=== PATIENT | male | born 1940 | race Caucasian/White ===

== ENCOUNTER 2020-10-19 13:13 | Inpatient (IN) | payer OTHER, MEDICARE ==
[~2020-10-19] VITALS: Ht 167.6 cm; Wt 56.5 kg
[2020-10-19] MEDS: NS 1,000 ML IV SCH (00:55)
[2020-10-19 14:24] LABS: BASO % 0.2 % (0.0-1.0); EOS # 0.1 10^3/uL (0.0-0.5); HEMATOCRIT 36.6 % (42.0-52.0); HEMOGLOBIN 12.2 g/dl (13.5-17.5); LYMPH # 0.6 10^3/uL (1.5-5.0); LYMPH % 11.6 % (24.0-44.0); MEAN CORPUSCULAR HEMOGLOBIN 30.2 pg (27.0-33.0); MEAN CORPUSCULAR HGB CONC 33.3 g/dl (32.0-36.5); MEAN CORPUSCULAR VOLUME 90.6 fl (80.0-96.0); MONO # 0.5 10^3/uL (0.0-0.8); NEUTROPHILS # 3.6 10^3/uL (1.5-8.5); PLATELET COUNT, AUTOMATED 149 10^3/uL (150-450); RED BLOOD COUNT 4.04 10^6/uL (4.30-6.10); WHITE BLOOD COUNT 4.8 10^3/uL (4.0-10.0)
[2020-10-19 14:34] LABS: INR 1.16; PROTHROMBIN TIME 15.1 SECONDS (12.5-14.3)
[2020-10-19 14:35] LABS: FIBRINOGEN 624 MG/DL (221-452); PARTIAL THROMBOPLASTIN TIME 31.7 SECONDS (24.2-38.5)
[2020-10-19 14:42] LABS: ALBUMIN 3.3 GM/DL (3.2-5.2); BILIRUBIN,TOTAL 0.8 MG/DL (0.2-1.0); C REACTIVE PROTEIN QUANTITATIV 8.23 MG/DL (0.00-0.30); CK-MB VALUE MASS 2.6 NG/ML (<3.6); CREATININE FOR GFR 1.36 MG/DL (0.70-1.30); GLOMERULAR FILTRATION RATE 53.8 (>42); MAGNESIUM LEVEL 2.2 MG/DL (1.8-2.4); MB/CK RELATIVE INDEX 3.06 (< OR =4); POTASSIUM SERUM 3.9 MEQ/L (3.5-5.1); TOTAL PROTEIN 7.2 GM/DL (6.4-8.2); TROPONIN I 0.02 NG/ML (< 0.10)
--- NOTE | 2020-10-19 14:43 | REP ---
INDICATION: Coronavirus workup COMPARISON: None. TECHNIQUE: Portable AP view of the chest FINDINGS: The mediastinum and cardiac silhouette are stable and within normal limits for portable technique. The lung choi are clear without acute consolidation, effusion, or pneumothorax. Skeletal structures are intact. IMPRESSION: No acute cardiopulmonary process appreciated. <Electronically signed by Gabriele Augustin > 10/19/20 0194
[2020-10-19 15:13] LABS: D-DIMER QUANT > 4000 ng/ml (<500)
[2020-10-19] MEDS ORDERED: NS 1,000 ML IV ONE ×3 (17:30→22:15)
[2020-10-19] MEDS ORDERED: TOPI50TA9 PO (17:48)
[2020-10-19] MEDS ORDERED: LISI-538 PO (17:48)
[2020-10-19] MEDS ORDERED: PROP80TA PO (17:48)
[2020-10-19] MEDS ORDERED: PRAV10TA3 PO (17:48)
[2020-10-19] MEDS ORDERED: MAALOX 30 ML SUSP *UDC PO PRN (23:15)
[2020-10-19] MEDS ORDERED: MOM 30ML SUSPENSION UDC PO PRN (23:15)
[2020-10-19] MEDS ORDERED: ACETAMINOPHEN TAB 650MG DOSE (2X325MG) PO PRN (23:15)
--- NOTE | 2020-10-19 23:32 | HPEPDOC ---
[facility] Medical History & Physical Date of Admission Oct 19, 2020 Date of Service: Oct 20, 2020 Other Provider Thom Mckeon MD Attending Physician: KAYKAY BERKOWITZ MD History and Physical TIME OF SERVICE: 12:05 AM CHIEF COMPLAINT: not urinating HISTORY OF PRESENT ILLNESS: This 80 year old gentleman was diagnosed with COVID 19, 6 days ago. Over the last couple of days, he has not been eating or drinking much been feeling very weak. Over the last 2 days, he hasn't produced much urine and felt concerned, therefore he decided to come to the hospital to request IV fluids. He denies feeling dizzy or falling. He is not sure where he contracted COVID 19. He has visited few dinners and [employer] recently. Both his and his son who live with him also have COVID. Today his shortness of breath became so severe that he now has difficulties speaking. REVIEW OF SYSTEMS: 12 point review of systems negative except as listed in HPI PAST MEDICAL/ SURGICAL HISTORY: Chronic hypertension. Essential tremors Hernia repair SOCIAL HISTORY: He doesn't smoke FAMILY HISTORY: Coronary artery disease ALLERGIES: Please see below. HOME MEDICATIONS: Please see below. PHYSICAL EXAMINATION: VITAL SIGNS: Please see below. GEN: well-nourished / well developed/ listless INTEGUMENT: not flushed/ not jaundice HEENT: Room air/mask is covering lower part of his face CVS: RRR/NMRG/ radial pulse intact LUNGS: Not able to speak full sentences without stopping to take a breath / coughing frequently/ lungs are clear to auscultation bilaterally on room air ABDOMEN: Contour (flat) / soft & not tender with palpation MSK/EXTREMITIES: NCAT NEURO: CN 2-12 are grossly intact / speech is not dysarthric PSYCH: alert and oriented to person place and time/ able to understand and f ollow all commands LABORATORY DATA: See below. IMAGING: Chest x-ray "IMPRESSION: No acute cardiopulmonary process appreciated." MICROBIOLOGY: Please see below. ASSESSMENT: Mr. Delgado a 80-year-old with a history of essential tremors and hypertension who was diagnosed with COVID 19 few days ago and subsequently developed poor appetite and decreased urine output; he came to the hospital requesting IV fluids and will be admitted primarily for management of dehydration. PLAN: 1. Dehydration secondary to poor oral His reduced PO intake is likely due to COVID infection He has tachycardia. His Cr and BUN are slightly elevated but we don't have a recent BMP to compare his current renal panel to Plan: Admit to medical floor/IV fluids / f/u BMP 2. COVID-19 Infection Has shortness of breath, using his accessory muscles, but his O2 sats are still above 94% on room air Blood work supports this diagnosis of Covid includes thrombocytopenia, elevated d-dimer, elevated ferritin, elevated LDH & elevated CRP His pro-calcitonin is within normal limits and the chest x-rays negative for infiltrates Plan: contact precautions / continuous pulse ox will ask the day time team to consider starting remdesivir if he is unable to maintain his O2 sats above 92% on room air / continue to trend CRP (if high indicates bad prognosis), trop, Coags, BMP, fibrinogen, INR, PT, PTT (if pt has DIC indicates bad prognosis), ferritin, LDH, trop (if elevated will order Echo to r/o cardiomyopathy) / VBG t o assess for hypoxia 2. Chronic hypertension Plan: Lisinopril 3. Essential tremors Plan: Inderal DVT PROPHYLAXIS: Lovenox DISPOSITION: home after more than 2 midnight's stay Vital Signs Vital Signs Date Time Temp Pulse Resp B/P (MAP) Pulse Ox O2 Delivery O2 Flow Rate FiO2 10/19/20 22:52 124 94 Room Air 10/19/20 22:46 149/99 (116) 10/19/20 21:00 97.6 10/19/20 17:45 20 Laboratory Data Labs 24H Laboratory Tests 2 10/19/20 13:25: Immature Granulocyte % (Auto) 1.2, Neutrophils (%) (Auto) 75.0H, Lymphocytes (%) (Auto) 11.6L, Monocytes (%) (Auto) 11.0H, Eosinophils (%) (Auto) 1.0, Basophils (%) (Auto) 0.2, Neutrophils # (Auto) 3.6, Lymphocytes # (Auto) 0.6L, Monocytes # (Auto) 0.5, Eosinophils # (Auto) 0.1, Basophils # (Auto) 0.0, Nucleated Red Blood Cells % (auto) 0.0, Prothrombin Time 15.1H, Prothromb Time International Ratio 1.16, Activated Partial Thromboplast Time 31.7, Fibrinogen 624H, D-Dimer, Quantitative > 4000H, Anion Gap 9, Glomerular Filtration Rate 53.8, Lactic Acid Level 1.4, Calcium Level 9.0, Magnesium Level 2.2, Ferritin 910H, Total Bilirubin 0.8, Aspartate Amino Transf (AST/SGOT) 36, Alanine Aminotransferase (ALT/SGPT) 30, Alkaline Phosphatase 71, Lactate Dehydrogenase 250H, Total Creatine Kinase 85, Creatine Kinase MB 2.6, Creatine Kinase MB Relative Index 3.06, Troponin I 0.02, C-Reactive Protein, Quantitative 8.23H, Total Protein 7.2, Albumin 3.3, Albumin/Globulin Ratio 0.8, Procalcitonin 0.06 10/19/20 13:54: POC pH (Misc Panel) 7.435, POC Base Excess (Misc Panel) -6.0L, POC Saturated Percent O2 (Misc) 96, POC pO2 (Misc Panel) 78.0L, POC pCO2 (Misc Panel) 26.7L, POC HCO3 (Misc Panel) 17.9L, POC Total CO2 (Misc Panel) 19.0L CBC/BMP Laboratory Tests 10/19/20 13:25 Microbiology Microbiology 10/19/20 Blood Culture, Received Pending 10/19/20 Blood Culture, Received Pending Home Medications Scheduled Aspirin (Aspirin) 325 Mg Tablet, 325 MG PO DAILY Lisinopril (Lisinopril) 40 Mg Tablet, 20 MG PO DAILY Multivitamins (Thera M Plus Tablet) 1 Each Tablet, 1 TAB PO BIDWM Pravastatin Sodium (Pravastatin Sodium) 20 Mg Tablet, 20 MG PO DAILY Propranolol HCl (Propranolol HCl ER) 160 Mg Cap.sa.24h, 160 MG PO DAILY Topiramate (Topiramate) 100 Mg Tablet, 50 MG PO BID Scheduled PRN Metoclopramide HCl (Metoclopramide HCl) 5 Mg Tablet, 5 MG PO WM PRN for NAUSEA Allergies Coded Allergies: No Known Allergies (Unverified , 10/19/20) A-FIB/CHADSVASC A-FIB History Current/History of A-Fib/PAF?: No Current PO Anticoag Therapy: No KAYKAY BERKOWITZ MD Oct 19, 2020 23:32
[2020-10-19] MEDS ORDERED: ONDANSETRON 4 MG ORAL DISINTEGRATING TAB PO PRN (23:45)
[2020-10-19] MEDS ORDERED: PILL CUTTER 1 EACH XX PRN (23:45)
[2020-10-19] MEDS ORDERED: TOPI100T9 PO (23:47)
[2020-10-19] MEDS ORDERED: ASPI325T54 PO (23:47)
[2020-10-19] MEDS ORDERED: METO5TAB2 PO (23:47)
[2020-10-19] MEDS ORDERED: PROP160C PO (23:47)
[2020-10-19] MEDS ORDERED: LISI40TA PO (23:47)
[2020-10-19] MEDS ORDERED: VITMTA PO (23:47)
[2020-10-19] MEDS ORDERED: PRAV20TA2 PO (23:47)
[2020-10-20] VITALS (11 sets, daily range): BP systolic 124–140; BP diastolic 72–80; O2SAT 95–98
[2020-10-20 00:41] LABS: EOS # 0.1 10^3/uL (0.0-0.5); EOS % 1.4 % (0.0-3.0); HEMATOCRIT 29.7 % (42.0-52.0); LYMPH # 0.3 10^3/uL (1.5-5.0); LYMPH % 9.2 % (24.0-44.0); MEAN CORPUSCULAR HEMOGLOBIN 29.5 pg (27.0-33.0); MEAN CORPUSCULAR HGB CONC 32.3 g/dl (32.0-36.5); MEAN CORPUSCULAR VOLUME 91.4 fl (80.0-96.0); MONO # 0.4 10^3/uL (0.0-0.8); MONO % 9.8 % (0.0-5.0); NEUTROPHILS # 2.8 10^3/uL (1.5-8.5); NEUTROPHILS % 78.5 % (36.0-66.0); PLATELET COUNT, AUTOMATED 125 10^3/uL (150-450); RED BLOOD COUNT 3.25 10^6/uL (4.30-6.10); WHITE BLOOD COUNT 3.6 10^3/uL (4.0-10.0)
[2020-10-20 00:49] LABS: HEMOGLOBIN 9.6 g/dl (13.5-17.5)
[2020-10-20 00:52] LABS: INR 1.27; PROTHROMBIN TIME 16.2 SECONDS (12.5-14.3)
[2020-10-20 00:53] LABS: FIBRINOGEN 457 MG/DL (221-452); PARTIAL THROMBOPLASTIN TIME 32.8 SECONDS (24.2-38.5)
[2020-10-20 01:12] LABS: C REACTIVE PROTEIN QUANTITATIV 6.59 MG/DL (0.00-0.30); TROPONIN I 0.06 NG/ML (< 0.10)
[2020-10-20 01:41] LABS: D-DIMER QUANT > 4000 ng/ml (<500)
--- NOTE | 2020-10-20 07:32 | ECGEPIP ---
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
[2020-10-20] MEDS: PRAVASTATIN 20 MG TAB PO SCH (08:23)
[2020-10-20] MEDS: TOPIRAMATE (TopAMAX) 25 MG TAB PO SCH ×2 (08:24→20:52)
[2020-10-20] MEDS: PROPRANOLOL 80 MG LA CAP PO SCH (08:25)
[2020-10-20] MEDS: NS 1,000 ML IV SCH (08:26)
[2020-10-20 08:36] LABS: VENOUS HCO3 17.1 MEQ/L (23.0-27.0); VENOUS O2 SATURATION 71.9 % (60.0-80.0); VENOUS PARTIAL PRESSURE CO2 33.7 mmHg (38.0-50.0); VENOUS PARTIAL PRESSURE O2 39.3 mmHg (30.0-50.0); VENOUS PH 7.324 UNITS (7.330-7.430); VENOUS STANDARD HCO3 17.6 MEQ/L; VENOUS TOTAL CO2 18.2 MEQ/L (24.0-28.0)
[2020-10-20] MEDS ORDERED: ENOXAPARIN 40MG/0.4ML SYRINGE (J1650 PER 10MG) SC SCH (09:00)
[2020-10-20] MEDS ORDERED: lisinopriL 20 MG TAB PO SCH (09:00)
[2020-10-20] MEDS ORDERED: ASPIRIN 325 MG TAB PO SCH (09:00)
[2020-10-20 09:28] LABS: INR 1.21; PROTHROMBIN TIME 15.6 SECONDS (12.5-14.3)
[2020-10-20 09:29] LABS: FIBRINOGEN 516 MG/DL (221-452); PARTIAL THROMBOPLASTIN TIME 31.6 SECONDS (24.2-38.5)
[2020-10-20 09:38] LABS: ALBUMIN 2.5 GM/DL (3.2-5.2); BILIRUBIN,TOTAL 0.7 MG/DL (0.2-1.0); C REACTIVE PROTEIN QUANTITATIV 8.51 MG/DL (0.00-0.30); CALCIUM LEVEL 7.6 MG/DL (8.8-10.2); CREATININE FOR GFR 1.78 MG/DL (0.70-1.30); GLOMERULAR FILTRATION RATE 39.4 (>42); MAGNESIUM LEVEL 1.9 MG/DL (1.8-2.4); TOTAL PROTEIN 5.6 GM/DL (6.4-8.2); TROPONIN I 0.06 NG/ML (< 0.10)
[2020-10-20 10:05] LABS: D-DIMER QUANT > 4000 ng/ml (<500)
[2020-10-20 10:14] LABS: BASO % 0.2 % (0.0-1.0); EOS # 0.1 10^3/uL (0.0-0.5); EOS % 1.2 % (0.0-3.0); HEMATOCRIT 30.4 % (42.0-52.0); HEMOGLOBIN 9.7 g/dl (13.5-17.5); LYMPH # 0.4 10^3/uL (1.5-5.0); LYMPH % 10.2 % (24.0-44.0); MEAN CORPUSCULAR HEMOGLOBIN 29.8 pg (27.0-33.0); MEAN CORPUSCULAR HGB CONC 31.9 g/dl (32.0-36.5); MEAN CORPUSCULAR VOLUME 93.5 fl (80.0-96.0); MONO # 0.4 10^3/uL (0.0-0.8); MONO % 10.9 % (0.0-5.0); NEUTROPHILS # 3.1 10^3/uL (1.5-8.5); NEUTROPHILS % 76.5 % (36.0-66.0); PLATELET COUNT, AUTOMATED 132 10^3/uL (150-450); RED BLOOD COUNT 3.25 10^6/uL (4.30-6.10)
--- NOTE | 2020-10-20 13:14 | IPNPDOC ---
Date Seen The patient was seen on 10/20/20. Progress Note SUBJECTIVE: patient continues to saturate 97% on RA. No acute events overnight. Becomes significantly tachypneic on getting up and sitting on commode. Patient reports no cough, no subjective fevers or chills, no chest pain, no n/v/d. 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 he had some suspicious skin lesions removed approx 5 years ago but otherwise has not prior hx of malignancy. OBJECTIVE PHYSICAL EXAMINATION: VITAL SIGNS: please see below General: NAD, comfortable HEENT: PERRLA, EOMI, sclerae clear Neck: supple, normal ROM, no JVD Respiratory: speaking full sentences, not acutely SOB. no cough. lungs CTAB. CVS: RRR, normal S1, S2, no murmurs Abdo: soft, no masses, no hepatosplenomegaly, BS+, no rebound tenderness Extremities: 1+ edema bilaterally. no cyanosis. pulses 2+ MSK: no joint deformities, normal ROM Neuro: no focal neuro deficits, moving all 4 extremities, CN2-12 intact. Strength 5/5 in all 4 extremities. No nystagmus. Psych: calm, cooperative, AAO x 3 LABORATORY DATA, IMAGING STUDIES, MICROBIOLOGY: Please see below. DVT prophylaxis ordered?: ASSESSMENT AND PLAN: Mr. Delgado a 80-year-old with a history of essential tremors and hypertension who was diagnosed with COVID 19 few days ago and subsequently developed poor appetite and decreased urine output; he came to the hospital requesting IV fluids and will be admitted primarily for management of dehydration. PROBLEMS: 1. Dehydration 2/2 poor PO intake: likely 2/2 covid. Increase IVF 125 cc/hr. 2. FILIPPO: Cr trending up, 1.7. Increase NS rate. Trend bmp. 3. COVID-19 infection: SOB on exertion. Not hypoxic at rest. Inflammatory simon ers going up. CRP trending up. CXR negative for infiltrates on 10/19/20. Procal neg. No DIC at this time, fibrinogen elevated. Discussed with Dr. El. Will start dexamethasone 6 mg PO daily. Will increase lovenox to 0.5 mg/kg q12h. Check venous duplex bilateral LEs. Trop 0.06. Stable. 4. HTN: on lisinopril at home, will hold given FILIPPO 5. essential tremors: inderal DVT ppx: 0.5 mg/kg q12h lovenox. VS, I&O, 24H, Ramosbone Vital Signs/I&O Vital Signs Date Time Temp Pulse Resp B/P (MAP) Pulse Ox O2 Delivery O2 Flow Rate FiO2 10/20/20 09:02 98.4 90 18 140/79 (99) 97 Room Air I&O- Last 24 Hours up to 6 AM 10/20/20 06:00 Intake Total 2300 ml Balance 2300 ml Laboratory Data 24H LABS Laboratory Tests 2 10/19/20 13:25: Immature Granulocyte % (Auto) 1.2, Neutrophils (%) (Auto) 75.0H, Lymphocytes (%) (Auto) 11.6L, Monocytes (%) (Auto) 11.0H, Eosinophils (%) (Auto) 1.0, Basophils (%) (Auto) 0.2, Neutrophils # (Auto) 3.6, Lymphocytes # (Auto) 0.6L, Monocytes # (Auto) 0.5, Eosinophils # (Auto) 0.1, Basophils # (Auto) 0.0, Nucleated Red Blood Cells % (auto) 0.0, Prothrombin Time 15.1H, Prothromb Time International Ratio 1.16, Activated Partial Thromboplast Time 31.7, Fibrinogen 624H, D-Dimer, Quantitative > 4000H, Anion Gap 9, Glomerular Filtration Rate 53.8, Lactic Acid Level 1.4, Calcium Level 9.0, Magnesium Level 2.2, Ferritin 910H, Total Bilirubin 0.8, Aspartate Amino Transf (AST/SGOT) 36, Alanine Aminotransferase (ALT/SGPT) 30, Alkaline Phosphatase 71, Lactate Dehydrogenase 250H, Total Creatine Kinase 85, Creatine Kinase MB 2.6, Creatine Kinase MB Relative Index 3.06, Troponin I 0.02, C-Reactive Protein, Quantitative 8.23H, Total Protein 7.2, Albumin 3.3, Albumin/Globulin Ratio 0.8, Procalcitonin 0.06 10/19/20 13:54: POC pH (Misc Panel) 7.435, POC Base Excess (Misc Panel) -6.0L, POC Saturated Percent O2 (Misc) 96, POC pO2 (Misc Panel) 78.0L, POC pCO2 (Misc Panel) 26.7L, POC HCO3 (Misc Panel) 17.9L, POC Total CO2 (Misc Panel) 19.0L 10/20/20 00:28: Immature Granulocyte % (Auto) 1.1, Neutrophils (%) (Auto) 78.5H, Lymphocytes (%) (Auto) 9.2L, Monocytes (%) (Auto) 9.8H, Eosinophils (%) (Auto) 1.4, Basophils (%) (Auto) 0.0, Neutrophils # (Auto) 2.8, Lymphocytes # (Auto) 0.3L, Monocytes # (Auto) 0.4, Eosinophils # (Auto) 0.1, Basophils # (Auto) 0.0, Nucleated Red Bloo d Cells % (auto) 0.0, Prothrombin Time 16.2H, Prothromb Time International Ratio 1.27, Activated Partial Thromboplast Time 32.8, Fibrinogen 457H, D-Dimer, Quantitative > 4000H, Ferritin 715H, Lactate Dehydrogenase 216, Troponin I 0.06#, C-Reactive Protein, Quantitative 6.59H, Procalcitonin 0.05, QL-Crm-Q-Type Natriuretic Peptide 329, Triglycerides Level 88 10/20/20 08:20: Prothrombin Time 15.6H, Prothromb Time International Ratio 1.21, Activated Partial Thromboplast Time 31.6, Fibrinogen 516H, D-Dimer, Quantitative > 4000H, Anion Gap 8, Glomerular Filtration Rate 39.4L, Calcium Level 7.6#L, Magnesium Level 1.9, Ferritin 788H, Total Bilirubin 0.7, Aspartate Amino Transf (AST/SGOT) 38H, Alanine Aminotransferase (ALT/SGPT) 33, Alkaline Phosphatase 56, Lactate Dehydrogenase 259H, Troponin I 0.06, C-Reactive Protein, Quantitative 8.51H, Total Protein 5.6#L, Albumin 2.5#L, Albumin/Globulin Ratio 0.8, Procalcitonin 0.08, CX-Qjz-C-Type Natriuretic Peptide 617H, Triglycerides Level 93, Blood Gas Bicarbonate Standard 17.6, Venous Blood pH 7.324L, Venous Blood Partial Pressure CO2 33.7L, Venous Blood Partial Pressure O2 39.3, Venous Blood Total Carbon Dioxide 18.2L, Venous Blood HCO3 17.1L, Venous Blood Oxygen Saturation 71.9, Venous Blood Base Excess -8.0L 10/20/20 09:57: Immature Granulocyte % (Auto) 1.0, Neutrophils (%) (Auto) 76.5H, Lymphocytes (%) (Auto) 10.2L, Monocytes (%) (Auto) 10.9H, Eosinophils (%) (Auto) 1.2, Basophils (%) (Auto) 0.2, Neutrophils # (Auto) 3.1, Lymphocytes # (Auto) 0.4L, Monocytes # (Auto) 0.4, Eosinophils # (Auto) 0.1, Basophils # (Auto) 0.0, Nucleated Red Blood Cells % (auto) 0.0, Troponin I 0.06 CBC/BMP Laboratory Tests 10/19/20 13:25 10/20/20 00:28 10/20/20 08:20 10/20/20 09:57 Microbiology Microbiology 10/19/20 Blood Culture, Received Pending 10/19/20 Blood Culture, Received Pending BEVERLY MICHAEL MD Oct 20, 2020 13:14
--- NOTE | 2020-10-20 16:13 | REP ---
INDICATION: hypercoag, SOB on exertion. COVID+ COMPARISON: None. TECHNIQUE: Welch scale and color Doppler evaluation of the bilateral lower extremities using linear high frequency transducer. FINDINGS: Ultrasound examination of the right and left lower extremity deep venous structures from the common femoral vein to the popliteal vein demonstrates normal compressibility flow and wave patterns in response to respiration and augmentation. There is no evidence for deep venous thrombosis. IMPRESSION: No evidence for deep venous thrombosis. <Electronically signed by Gabriele Augustin > 10/20/20 1272
[2020-10-20] MEDS: ENOXAPARIN 30MG/0.3ML SYRINGE (J1650 PER 10MG) SC SCH (20:53)
[2020-10-21] VITALS (11 sets, daily range): BP systolic 133–137; BP diastolic 64; O2SAT 95–99
[2020-10-21] MEDS: NS 1,000 ML IV SCH ×4 (01:09→17:03)
[2020-10-21 07:41] LABS: BASO % 0.3 % (0.0-1.0); HEMATOCRIT 29.5 % (42.0-52.0); HEMOGLOBIN 9.3 g/dl (13.5-17.5); LYMPH # 0.4 10^3/uL (1.5-5.0); LYMPH % 11.9 % (24.0-44.0); MEAN CORPUSCULAR HEMOGLOBIN 30.1 pg (27.0-33.0); MEAN CORPUSCULAR HGB CONC 31.5 g/dl (32.0-36.5); MEAN CORPUSCULAR VOLUME 95.5 fl (80.0-96.0); MONO # 0.3 10^3/uL (0.0-0.8); NEUTROPHILS # 2.4 10^3/uL (1.5-8.5); NEUTROPHILS % 76.5 % (36.0-66.0); PLATELET COUNT, AUTOMATED 136 10^3/uL (150-450); RED BLOOD COUNT 3.09 10^6/uL (4.30-6.10); WHITE BLOOD COUNT 3.1 10^3/uL (4.0-10.0)
[2020-10-21 07:59] LABS: ALBUMIN 2.1 GM/DL (3.2-5.2); BILIRUBIN,TOTAL 0.5 MG/DL (0.2-1.0); CALCIUM LEVEL 7.8 MG/DL (8.8-10.2); CREATININE FOR GFR 1.86 MG/DL (0.70-1.30); GLOMERULAR FILTRATION RATE 37.5 (>42); POTASSIUM SERUM 4.2 MEQ/L (3.5-5.1); TOTAL PROTEIN 5.1 GM/DL (6.4-8.2)
[2020-10-21] MEDS ORDERED: ASPIRIN 325 MG TAB PO SCH (09:00)
[2020-10-21] MEDS: ENOXAPARIN 30MG/0.3ML SYRINGE (J1650 PER 10MG) SC SCH ×2 (09:36→21:03)
[2020-10-21] MEDS: TOPIRAMATE (TopAMAX) 25 MG TAB PO SCH ×2 (09:36→21:03)
[2020-10-21] MEDS: PROPRANOLOL 80 MG LA CAP PO SCH (09:37)
[2020-10-21] MEDS: PRAVASTATIN 20 MG TAB PO SCH (09:37)
--- NOTE | 2020-10-21 11:08 | IPNPDOC ---
Date Seen The patient was seen on 10/21/20. Progress Note SUBJECTIVE: patient continues to saturate 97% on RA. Per RN, able to ambulate to commode without desaturation to below 94% on RA. Denies fevers, chills, n/v/d, no cough, no palpitations no chest pain. OBJECTIVE PHYSICAL EXAMINATION: VITAL SIGNS: please see below General: NAD, comfortable HEENT: PERRLA, EOMI, sclerae clear Neck: supple, normal ROM, no JVD Respiratory: speaking full sentences, not acutely SOB. no cough. lungs CTAB. CVS: RRR, normal S1, S2, no murmurs Abdo: soft, no masses, no hepatosplenomegaly, BS+, no rebound tenderness Extremities: 1+ edema bilaterally. no cyanosis. pulses 2+ MSK: no joint deformities, normal ROM Neuro: no focal neuro deficits, moving all 4 extremities, CN2-12 intact. Strength 5/5 in all 4 extremities. No nystagmus. Psych: calm, cooperative, AAO x 3 LABORATORY DATA, IMAGING STUDIES, MICROBIOLOGY: Please see below. DVT prophylaxis ordered?: ASSESSMENT AND PLAN: Mr. Delgado a 80-year-old with a history of essential tremors and hypertension who was diagnosed with COVID 19 few days ago and subsequently developed poor appetite and decreased urine output; he came to the hospital requesting IV fluids and will be admitted primarily for management of dehydration. PROBLEMS: 1. Dehydration 2/2 poor PO intake: c/w IVF 2. FILIPPO: CR trending up, 1.86. Discussed with Dr. Harris, continue IVF hydration. Repeat BMP in am. 3. COVID-19 infection: SOB on exertion. Not hypoxic at rest CXR negative for infiltrates on 10/19/20. Procal neg. No DIC at this time, fibrinogen elevated. Discussed with Dr. El. dexamethasone 6 mg PO daily. lovenox to 0.5 mg/kg q12h. venous duplex bilateral LEs - negative for DVT. 4. HTN: on lisinopril at home, will hold given FILIPPO 5. essential tremors: inderal DVT ppx: 0.5 mg/kg q12h lovenox. VS, I&O, 24H, Fishbone Vital Signs/I&O Vital Signs Date Time Temp Pulse Resp B/P (MAP) Pulse Ox O2 Delivery O2 Flow Rate FiO2 11/27/20 09:37 76 133/64 10/21/20 07:00 98 Room Air 10/21/20 05:23 96.0 16 I&O- Last 24 Hours up to 6 AM 10/21/20 06:00 Intake Total 2310 ml Output Total 0 ml Balance 2310 ml Laboratory Data 24H LABS Laboratory Tests 2 10/20/20 22:58: Troponin I 0.04# 10/21/20 07:21: Immature Granulocyte % (Auto) 1.3, Neutrophils (%) (Auto) 76.5H, Lymphocytes (%) (Auto) 11.9L, Monocytes (%) (Auto) 10.0H, Eosinophils (%) (Auto) 0.0, Basophils (%) (Auto) 0.3, Neutrophils # (Auto) 2.4, Lymphocytes # (Auto) 0.4L, Monocytes # (Auto) 0.3, Eosinophils # (Auto) 0.0, Basophils # (Auto) 0.0, Nucleated Red Blood Cells % (auto) 0.0, Anion Gap 10, Glomerular Filtration Rate 37.5L, Calcium Level 7.8L, Magnesium Level 2.0, Total Bilirubin 0.5, Aspartate Amino Transf (AST/SGOT) 24, Alanine Aminotransferase (ALT/SGPT) 23, Alkaline Phosphatase 53, Total Protein 5.1L, Albumin 2.1L, Albumin/Globulin Ratio 0.7 CBC/BMP Laboratory Tests 10/21/20 07:21 Microbiology Microbiology 10/19/20 Blood Culture - Preliminary, Resulted No growth after 24 hours . All specim... 10/19/20 Blood Culture - Preliminary, Resulted No growth after 24 hours . All specim... BEVERLY MICHAEL MD Oct 21, 2020 11:08
[2020-10-21 11:37] LABS: PLATELET COUNT, AUTOMATED 159 10^3/uL (150-450)
[2020-10-21 11:53] LABS: FIBRINOGEN 432 MG/DL (221-452); INR 1.38; PARTIAL THROMBOPLASTIN TIME 35.6 SECONDS (24.2-38.5); PROTHROMBIN TIME 17.3 SECONDS (12.5-14.3)
[2020-10-21 12:06] LABS: C REACTIVE PROTEIN QUANTITATIV 6.44 MG/DL (0.00-0.30)
[2020-10-21 12:17] LABS: D-DIMER QUANT > 4000 ng/ml (<500)
[2020-10-21 12:39] LABS: ERYTHROCYTE SEDIMENTATION RATE 58 mm/hr (0-20)
[2020-10-22] VITALS: O2SAT 98
[2020-10-22] MEDS: NS 1,000 ML IV SCH ×2 (03:33→08:18)
[2020-10-22 06:00] VITALS: O2SAT 95
[2020-10-22 06:21] VITALS: BP 152/72
[2020-10-22 07:24] LABS: BASO % 0.2 % (0.0-1.0); HEMATOCRIT 30.3 % (42.0-52.0); HEMOGLOBIN 9.7 g/dl (13.5-17.5); LYMPH # 0.4 10^3/uL (1.5-5.0); LYMPH % 8.3 % (24.0-44.0); MEAN CORPUSCULAR HEMOGLOBIN 29.9 pg (27.0-33.0); MEAN CORPUSCULAR VOLUME 93.5 fl (80.0-96.0); MONO # 0.5 10^3/uL (0.0-0.8); MONO % 10.7 % (0.0-5.0); NEUTROPHILS % 79.4 % (36.0-66.0); PLATELET COUNT, AUTOMATED 159 10^3/uL (150-450); RED BLOOD COUNT 3.24 10^6/uL (4.30-6.10)
[2020-10-22 07:44] VITALS: BP 151/79
[2020-10-22 07:46] LABS: ALBUMIN 2.2 GM/DL (3.2-5.2); BILIRUBIN,TOTAL 0.6 MG/DL (0.2-1.0); CALCIUM LEVEL 7.7 MG/DL (8.8-10.2); CREATININE FOR GFR 1.42 MG/DL (0.70-1.30); GLOMERULAR FILTRATION RATE 51.2 (>42); MAGNESIUM LEVEL 1.9 MG/DL (1.8-2.4); POTASSIUM SERUM 4.1 MEQ/L (3.5-5.1); TOTAL PROTEIN 5.2 GM/DL (6.4-8.2)
[2020-10-22 08:00] VITALS: O2SAT 96
[2020-10-22] MEDS: ASPIRIN 81 MG ENTERIC TAB PO SCH (08:17)
[2020-10-22] MEDS: PRAVASTATIN 20 MG TAB PO SCH (08:17)
[2020-10-22] MEDS: PROPRANOLOL 80 MG LA CAP PO SCH (08:17)
[2020-10-22] MEDS: TOPIRAMATE (TopAMAX) 25 MG TAB PO SCH ×2 (08:18→20:08)
[2020-10-22] MEDS: ENOXAPARIN 30MG/0.3ML SYRINGE (J1650 PER 10MG) SC SCH ×2 (08:18→20:08)
[2020-10-22] MEDS ORDERED: ASPI81TAEC PO (11:54)
[2020-10-22] MEDS ORDERED: DEXA2TA PO (11:54)
[2020-10-22] MEDS ORDERED: ACET1TAB55 PO (11:54)
--- NOTE | 2020-10-22 14:06 | DS.PDOC ---
Discharge Summary General Date of Admission 10/19/20 Date of Discharge 10/22/20 Discharge Summary PROCEDURES PERFORMED DURING STAY: None ADMITTING DIAGNOSES: 1. Covid-19 Infection 2. Chronic hypertension 3. Essential tremors DISCHARGE DIAGNOSES: 1. Covid-19 Infection 2. Chronic hypertension 3. Essential tremors 4. FILIPPO 5. Dehydration COMPLICATIONS/CHIEF COMPLAINT: Covid-19. HISTORY OF PRESENT ILLNESS: This 80 year old gentleman was diagnosed with COVID 19, 6 days ago. Over the last couple of days, he has not been eating or drinking much been feeling very weak. Over the last 2 days, he hasn't produced much urine and felt concerned, therefore he decided to come to the hospital to request IV fluids. He denies feeling dizzy or falling. He is not sure where he contracted COVID 19. He has visited few dinners and [employer] recently. Both his and his son who live with him also have COVID. Today his shortness of breath became so severe that he now has difficulties speaking. HOSPITAL COURSE: 1. Dehydration 2/2 poor PO intake: resolved with IV normal saline infusion, encouraged PO intake. 2. FILIPPO: patient's creatinine 1.86 at max. Possibly 2/2 dehydration vs covid-[address] Harris, continue IVF hydration. Repeat BMP showing improvement, on DC Cr 1.35. Advised to follow up with nephrology in one month per Dr. Harris. 3. COVID-19 infection: CXR negative for infiltrates on 10/19/20. Procal neg. No DIC. Inflammatory markers increased but normalized and downtrended. Obtained bilateral venous duplex, no evidence for DVT. Discussed with Dr. El. Received dexamethasone 6 mg PO daily with a 7 day course on discharge. lovenox to 0.5 mg/kg q12 was given during admission, followed by ASA 81 mg on admission as was recommended by Dr. House upon discharge. Patient completed 10 days of quarantine on 10/24/20. PT cleared for DC from mobility standpoint. No desa turation at rest or ambulation around room/to commode on room air. Home services referral provided. 4. HTN: on lisinopril at home, will hold given FILIPPO 5. essential tremors: inderal DISCHARGE MEDICATIONS: Please see below. ALLERGIES: Please see below. PHYSICAL EXAMINATION ON DISCHARGE: VITAL SIGNS: please see below General: NAD, comfortable HEENT: PERRLA, EOMI, sclerae clear Neck: supple, normal ROM, no JVD Respiratory: speaking full sentences, not acutely SOB. no cough. lungs CTAB. CVS: RRR, normal S1, S2, no murmurs Abdo: soft, no masses, no hepatosplenomegaly, BS+, no rebound tenderness Extremities: 1+ edema bilaterally. no cyanosis. pulses 2+ MSK: no joint deformities, normal ROM Neuro: no focal neuro deficits, moving all 4 extremities, CN2-12 intact. Strength 5/5 in all 4 extremities. No nystagmus. Psych: calm, cooperative, AAO x 3 LABORATORY DATA: Please see below. IMAGING: Chest x-ray (10/19/20) "IMPRESSION: No acute cardiopulmonary process appreciated." Bilateral lower extremity venous duplex (10/20/20): FINDINGS: Ultrasound examination of the right and left lower extremity deep venous structures from the common femoral vein to the popliteal vein demonstrates normal compressibility flow and wave patterns in response to respiration and augmentation. There is no evidence for deep venous thrombosis. IMPRESSION: No evidence for deep venous thrombosis. PROGNOSIS: good ACTIVITY: Use rolling walker. Home PT. Minimal exertion. Shower bench at home. DIET: as tolerated DISCHARGE PLAN: DC home with home health nursing evaluation, home PT. Dexamethasone 6 mg PO daily for an additional 7 days. ASA 81 mg PO daily per pulmonary recommendations for DVT ppx. Follow up with PCP. DISCHARGE INSTRUCTIONS: 1. Follow up with PCP 3-5 days 2. Follow up with nephrology in 1 month 3. Take dexamethasone 6 mg once daily by mouth for 7 days. Take aspirin 81 mg by mouth daily until seen by primary care doctor 4. If you experience worsening shortness of breath, chest pain, wheezing, loss of consciousness, sever fatigue, coughing up blood, localized weakness/numbness or otherwise worsening of your symptoms, please call 911 or return to the nearest emergency room. ITEMS TO FOLLOWUP ON ON OUTPATIENT: 1. Repeat BMP 3-5 days 2. Follow up with nephrology in approximately 1 month. DISCHARGE CONDITION: Stable, saturating well on room air. Afebrile. TIME SPENT ON DISCHARGE: 35 minutes Vital Signs/I&Os Vital Signs Date Time Temp Pulse Resp B/P (MAP) Pulse Ox O2 Delivery O2 Flow Rate FiO2 10/22/20 12:00 99 Room Air 10/22/20 08:17 83 151/79 10/22/20 07:44 96.3 22 I&O- Last 24 Hours up to 6 AM 10/22/20 06:00 Intake Total 1120 ml Output Total 625 ml Balance 495 ml Laboratory Data Labs 24H Laboratory Tests 2 10/22/20 07:03: Immature Granulocyte % (Auto) 1.4, Neutrophils (%) (Auto) 79.4H, Lymphocytes (%) (Auto) 8.3L, Monocytes (%) (Auto) 10.7H, Eosinophils (%) (Auto) 0.0, Basophils (%) (Auto) 0.2, Neutrophils # (Auto) 4.0, Lymphocytes # (Auto) 0.4L, Monocytes # (Auto) 0.5, Eosinophils # (Auto) 0.0, Basophils # (Auto) 0.0, Nucleated Red Blood Cells % (auto) 0.0, Anion Gap 7L, Glomerular Filtration Rate 51.2, Calcium Level 7.7L, Magnesium Level 1.9, Total Bilirubin 0.6, Aspartate Amino Transf (AST/SGOT) 26, Alanine Aminotransferase (ALT/SGPT) 23, Alkaline Phosphatase 49, Total Protein 5.2L, Albumin 2.2L, Albumin/Globulin Ratio 0.7 CBC/BMP Laboratory Tests 10/22/20 07:03 Microbiology Microbiology 10/19/20 Blood Culture - Preliminary, Resulted No Growth after 48 hours. All Specime... 10/19/20 Blood Culture - Preliminary, Resulted No Growth after 48 hours. All Specime... Discharge Medications Scheduled Aspirin (Aspirin) 325 Mg Tablet, 325 MG PO DAILY, (Reported) Aspirin (Aspirin EC) 81 Mg Tablet.dr, 81 MG PO DAILY Dexamethasone (Dexamethasone) 2 Mg Tablet, 6 MG PO DAILY Lisinopril (Lisinopril) 40 Mg Tablet, 20 MG PO DAILY, (Reported) Multivitamins (Thera M Plus Tablet) 1 Each Tablet, 1 TAB PO BIDWM, (Reported) Pravastatin Sodium (Pravastatin Sodium) 20 Mg Tablet, 20 MG PO DAILY, (Reported) Propranolol HCl (Propranolol HCl ER) 160 Mg Cap.sa.24h, 160 MG PO DAILY, (Reported) Topiramate (Topiramate) 100 Mg Tablet, 50 MG PO BID, (Reported) Scheduled PRN Acetaminophen (Acetaminophen) 325 Mg Tablet, 650 MG PO Q4H PRN for PAIN OR FEVER Metoclopramide HCl (Metoclopramide HCl) 5 Mg Tablet, 5 MG PO WM PRN for NAUSEA, (Reported) Allergies Coded Allergies: No Known Allergies (Unverified , 10/19/20) BEVERLY MICHAEL MD Oct 22, 2020 14:06
[2020-10-23 05:56] VITALS: BP 146/70
[2020-10-23 07:23] LABS: BASO % 0.2 % (0.0-1.0); EOS % 0.4 % (0.0-3.0); HEMOGLOBIN 9.8 g/dl (13.5-17.5); LYMPH # 0.5 10^3/uL (1.5-5.0); LYMPH % 9.2 % (24.0-44.0); MEAN CORPUSCULAR HEMOGLOBIN 29.8 pg (27.0-33.0); MEAN CORPUSCULAR HGB CONC 32.7 g/dl (32.0-36.5); MEAN CORPUSCULAR VOLUME 91.2 fl (80.0-96.0); MONO # 0.6 10^3/uL (0.0-0.8); MONO % 11.8 % (0.0-5.0); NEUTROPHILS # 3.8 10^3/uL (1.5-8.5); NEUTROPHILS % 77.4 % (36.0-66.0); PLATELET COUNT, AUTOMATED 176 10^3/uL (150-450); RED BLOOD COUNT 3.29 10^6/uL (4.30-6.10); WHITE BLOOD COUNT 4.9 10^3/uL (4.0-10.0)
[2020-10-23 07:54] LABS: ALBUMIN 2.3 GM/DL (3.2-5.2); ALT/SGPT 43 U/L (12-78); BILIRUBIN,TOTAL 0.6 MG/DL (0.2-1.0); BLOOD UREA NITROGEN 26 MG/DL (7-18); CALCIUM LEVEL 7.8 MG/DL (8.8-10.2); CARBON DIOXIDE LEVEL 16 MEQ/L (21-32); CHLORIDE LEVEL 110 MEQ/L (98-107); CREATININE FOR GFR 1.23 MG/DL (0.70-1.30); GLOMERULAR FILTRATION RATE > 60.0 (>42); GLUCOSE, FASTING 80 MG/DL (70-100); MAGNESIUM LEVEL 1.9 MG/DL (1.8-2.4); POTASSIUM SERUM 3.8 MEQ/L (3.5-5.1); SODIUM LEVEL 136 MEQ/L (136-145)
[2020-10-23] MEDS: ASPIRIN 81 MG ENTERIC TAB PO SCH (08:31)
[2020-10-23] MEDS: PRAVASTATIN 20 MG TAB PO SCH (08:31)
[2020-10-23] MEDS: TOPIRAMATE (TopAMAX) 25 MG TAB PO SCH ×2 (08:31→20:19)
[2020-10-23] MEDS: ENOXAPARIN 30MG/0.3ML SYRINGE (J1650 PER 10MG) SC SCH ×2 (08:32→20:20)
[2020-10-23] MEDS: PROPRANOLOL 80 MG LA CAP PO SCH (08:35)
[2020-10-23 11:40] VITALS: BP 149/84
[2020-10-24 06:00] VITALS: BP 144/70
[2020-10-24 07:37] LABS: BASO % 0.2 % (0.0-1.0); EOS % 0.4 % (0.0-3.0); HEMATOCRIT 30.5 % (42.0-52.0); HEMOGLOBIN 10.2 g/dl (13.5-17.5); LYMPH # 0.6 10^3/uL (1.5-5.0); MEAN CORPUSCULAR HEMOGLOBIN 30.4 pg (27.0-33.0); MEAN CORPUSCULAR HGB CONC 33.4 g/dl (32.0-36.5); MEAN CORPUSCULAR VOLUME 90.8 fl (80.0-96.0); MONO # 0.7 10^3/uL (0.0-0.8); MONO % 12.8 % (0.0-5.0); NEUTROPHILS # 3.7 10^3/uL (1.5-8.5); PLATELET COUNT, AUTOMATED 192 10^3/uL (150-450); RED BLOOD COUNT 3.36 10^6/uL (4.30-6.10); WHITE BLOOD COUNT 5.1 10^3/uL (4.0-10.0)
[2020-10-24 07:56] LABS: ALBUMIN 2.4 GM/DL (3.2-5.2); BILIRUBIN,TOTAL 0.7 MG/DL (0.2-1.0); CREATININE FOR GFR 1.35 MG/DL (0.70-1.30); GLOMERULAR FILTRATION RATE 54.3 (>42); MAGNESIUM LEVEL 2.1 MG/DL (1.8-2.4); POTASSIUM SERUM 3.7 MEQ/L (3.5-5.1); TOTAL PROTEIN 5.2 GM/DL (6.4-8.2)
[2020-10-24] MEDS: PRAVASTATIN 20 MG TAB PO SCH (08:11)
[2020-10-24] MEDS: TOPIRAMATE (TopAMAX) 25 MG TAB PO SCH (08:11)
[2020-10-24] MEDS: ASPIRIN 81 MG ENTERIC TAB PO SCH (08:11)
[2020-10-24 08:12] VITALS: BP 157/75
[2020-10-24] MEDS: PROPRANOLOL 80 MG LA CAP PO SCH (08:12)
[2020-10-24] MEDS: ENOXAPARIN 30MG/0.3ML SYRINGE (J1650 PER 10MG) SC SCH (08:12)
--- NOTE | 2020-10-24 15:46 | IPNPDOC ---
Date Seen The patient was seen on 10/24/20. Progress Note Patient continues to saturate 97% on RA at rest and above 92% on exertion when ambulating to commode. On dexamethasone. Afebrile. VSS. Please refer to DC summary from 10/22/20 for detailed report. Patient was DC with rx for dexamethasone, daily ASA 81 mg per pulmonary recs for DVT ppx, as well as a home health referral for nursing eval and physical therapy. Patient has shower bench, RW at home. Discussed with his and answered all questions in detail. VS, I&O, 24H, Fishbone Vital Signs/I&O Vital Signs Date Time Temp Pulse Resp B/P (MAP) Pulse Ox O2 Delivery O2 Flow Rate FiO2 10/24/20 08:12 83 157/75 10/24/20 06:00 97.1 18 97 Room Air I&O- Last 24 Hours up to 6 AM 10/24/20 06:00 Intake Total 1060 ml Output Total 800 ml Balance 260 ml Laboratory Data 24H LABS Laboratory Tests 2 10/24/20 07:06: Immature Granulocyte % (Auto) 1.6, Neutrophils (%) (Auto) 73.0H, Lymphocytes (%) (Auto) 12.0L, Monocytes (%) (Auto) 12.8H, Eosinophils (%) (Auto) 0.4, Basophils (%) (Auto) 0.2, Neutrophils # (Auto) 3.7, Lymphocytes # (Auto) 0.6L, Monocytes # (Auto) 0.7, Eosinophils # (Auto) 0.0, Basophils # (Auto) 0.0, Nucleated Red Blood Cells % (auto) 0.0, Anion Gap 8, Glomerular Filtration Rate 54.3, Calcium Level 8.0L, Magnesium Level 2.1, Total Bilirubin 0.7, Aspartate Amino Transf (AST/SGOT) 60H, Alanine Aminotransferase (ALT/SGPT) 64, Alkaline Phosphatase 54, Total Protein 5.2L, Albumin 2.4L, Albumin/Globulin Ratio 0.9 CBC/BMP Laboratory Tests 10/24/20 07:06 Microbiology Microbiology 10/19/20 Blood Culture - Final, Complete NO GROWTH AFTER 5 DAYS 10/19/20 Blood Culture - Final, Complete NO GROWTH AFTER 5 DAYS BEVERLY MICHAEL MD Oct 24, 2020 15:45
== END 2020-10-24 17:27 | disposition home health service (06) | DRG 178 ==
LOC: EDUNIT# 13:13 → EDBD 13:13 → M ED 13:13 → M ED INP 13:14 → ENRESERV 23:41 → M 4MAIN 10-20 01:08 → OBSVTOIN 10-21 13:32
PROVIDERS: ADMIT Internal Medicine; ATTEND Family Medicine
DX: U07.1 COVID-19 (principal); N17.9 Acute kidney failure, unspecified; E86.0 Dehydration; I10 Essential (primary) hypertension; G25.0 Essential tremor; Z79.82 Long term (current) use of aspirin; Z79.899 Other long term (current) drug therapy

== ENCOUNTER → 2021-10-30 | Outpatient (CLI) | payer OTHER ==
[~2021-10-30] MED LIST: ACET1TAB55 PO; ASPI-569 PO; ASPI325T54 PO; DEXA2TA PO; LISI20TA33 PO; LISI40TA4 PO; METO5TAB2 PO; PRAV10TA3 PO; PRAV20TA2 PO; PROP160C PO; PROP80TA PO; TOPI100T9 PO; TOPI50TA9 PO; VITMTA PO
--- NOTE | 2021-10-31 03:56 | REP ---
INDICATION: ABNORMAL THYORID FUNCTION STUDY COMPARISON: None. TECHNIQUE: Welch scale and color evaluation of the thyroid gland using the linear high frequency transducer. FINDINGS: The thyroid gland is normal in contour, shape, size, and overall parenchymal echogenicity. Isthmus measures 3 mm in width. Right lobe measures 3.0 x 1.9 x 1.7 cm and includes 7 x 5 x 8 mm upper pole relatively simple cyst along with few scattered nonspecific indeterminate cysts and tiny hypodense nodules. Left lobe measures 2.3 x 1.3 x 0.9 cm with 2 x 2 x 1.2 mm upper pole cyst. IMPRESSION: Relatively normal thyroid gland with small presumed benign appearing changes. <Electronically signed by Gabriele Augustin > 10/31/21 [id number]
== END ==
LOC: M RAD 11:06
PROVIDERS: ATTEND Nurse Practitioner Family
DX: E07.9 Disorder of thyroid, unspecified (principal)